=== PATIENT | female | born 1950 | race Caucasian/White ===

== ENCOUNTER 2024-01-11 09:32 | Emergency (ER) | payer MEDICARE, MEDICAID ==
[~2024-01-11] VITALS: Ht 167.6 cm; Wt 98.0 kg
[~2024-01-11 09:32] MED LIST: ACET-2971 PO; CELE-148 PO; DOCU-151 PO; GABA-530 PO; HYDR-3965 PO; LORA10TA7 PO; PANT-47 PO
[2024-01-11 09:36] VITALS: TEMP 97.9
[2024-01-11] MEDS: normal saline 1000ML IV soln IVB ONE (09:50)
[2024-01-11] MEDS: fentaNYL/PF 50MCG/1 ML 2ML syringe IV ONE (09:50)
[2024-01-11] MEDS: ondansetron/PF 4mg/2ml inj IV ONE (09:50)
[2024-01-11 10:24] LABS: ALBUMIN 3.9 G/DL (3.4-5.0); ANION GAP 9 (8-16); BLOOD UREA NITROGEN 13 MG/DL (7-18); BUN/CREATININE RATIO 14.4 (10.0-20.0); CALCIUM 8.7 MG/DL (8.5-10.1); CHLORIDE 107 MMOL/L (99-107); GLUCOSE 109 MG/DL (70-104); SODIUM 142 MMOL/L (135-145); TOTAL CARBON DIOXIDE 26.4 MMOL/L (24-32); eCRCL 54 ML/MIN; eGFR 62 ML/MIN
[2024-01-11 10:28] LABS: BASOPHILS % (AUTO) 0.8 % (0-1); EOSINOPHILS # (AUTO) 0.1 X10'3 (0-0.9); HEMATOCRIT 44.6 % (35.0-45.0); HEMOGLOBIN 14.5 g/dl (12.0-16.0); LYMPHOCYTES # (AUTO) 1.1 X10'3 (1.1-4.8); MEAN CORPUSCULAR HEMOGLOBIN 29.4 PG (27.0-31.0); MEAN CORPUSCULAR HGB CONC 32.5 g/dL (33.0-36.5); MEAN CORPUSCULAR VOLUME 90.6 FL (78-98); MEAN PLATELET VOLUME 8.3 FL (7.4-10.4); MONOCYTES # (AUTO) 0.4 X10'3 (0-0.9); MONOCYTES % (AUTO) 6.5 % (2-12); NEUTROPHILS # (AUTO) 4.3 X10'3 (1.8-7.7); NEUTROPHILS % (AUTO) 72.7 % (42-75); PLATELET COUNT 258 X10'3 (140-440); RED BLOOD COUNT 4.92 X10'6 (4.20-5.60); RED CELL DISTRIBUTION WIDTH 14.6 % (11.5-14.5); WHITE BLOOD COUNT 5.9 X10'3 (4.5-11.0)
[2024-01-11 10:49] LABS: PROTHROMBIN TIME 10.4 SECONDS (9.0-12.0)
[2024-01-11] MEDS ORDERED: CYCL-1 PO (11:45)
[2024-01-11 15:14] VITALS: BP 145/86; PULSE 84; RESP 16; O2SAT 98
== END 2024-01-11 15:15 | disposition home or self-care (01) ==
LOC: ER 09:32
DX: M54.31 Sciatica, right side (principal); M25.551 Pain in right hip; M48.061 Spinal stenosis, lumbar region without neurogenic claudication; G43.909 Migraine, unspecified, not intractable, without status migrainosus; J44.9 Chronic obstructive pulmonary disease, unspecified; E11.9 Type 2 diabetes mellitus without complications; R79.1 Abnormal coagulation profile; Z88.5 Allergy status to narcotic agent; Z79.2 Long term (current) use of antibiotics; Z79.1 Long term (current) use of non-steroidal anti-inflammatories (NSAID); Z79.899 Other long term (current) drug therapy; Z90.49 Acquired absence of other specified parts of digestive tract; Z90.710 Acquired absence of both cervix and uterus; W19.XXXA Unspecified fall, initial encounter; Y93.89 Activity, other specified; Y92.89 Other specified places as the place of occurrence of the external cause; Y99.8 Other external cause status
CPT/HCPCS: 36415; 72131; 72192; 80048; 85025; 85610; 96361; 96374; 96375; 99285; J2405; J3010; J7030; A4615

== ENCOUNTER 2024-05-23 09:32 | Day surgery (SDC) | payer MEDICARE, MEDICAID ==
[2024-05-16 11:36] LABS: ALBUMIN 3.7 G/DL (3.4-5.0); ALBUMIN/GLOBULIN RATIO 0.9 (1.1-1.5); ALKALINE PHOSPHATASE 113 IU/L (46-116); BLOOD UREA NITROGEN 18 MG/DL (7-18); BUN/CREATININE RATIO 19.1 (10.0-20.0); CALCIUM 8.9 MG/DL (8.5-10.1); CHLORIDE 106 MMOL/L (99-107); CREATININE 0.94 MG/DL (0.40-0.90); PRE OP ALT 26 U/L (30-65); PRE OP ANION GAP 7 (8-16); PRE OP AST 12 U/L (10-37); PRE OP BILIRUB, TOTAL 0.2 MG/DL (0.0-1.0); PRE OP GLUCOSE 104 MG/DL (70-104); PRE OP POTASSIUM 3.9 MMOL/L (3.4-5.1); PRE OP SODIUM 142 MMOL/L (135-145); TOTAL CARBON DIOXIDE 28.8 MMOL/L (24-32); TOTAL PROTEIN 7.6 G/DL (6.4-8.2); eGFR 59 ML/MIN
[2024-05-16 11:41] LABS: BASOPHILS % (AUTO) 0.6 % (0-1); EOSINOPHILS # (AUTO) 0.1 X10'3 (0-0.9); EOSINOPHILS % (AUTO) 1.2 % (0-6); LYMPHOCYTES # (AUTO) 1.6 X10'3 (1.1-4.8); LYMPHOCYTES % (AUTO) 23.9 % (21-51); MEAN CORPUSCULAR HEMOGLOBIN 29.8 PG (27.0-31.0); MEAN CORPUSCULAR HGB CONC 33.1 g/dL (33.0-36.5); MEAN CORPUSCULAR VOLUME 89.8 FL (78-98); MEAN PLATELET VOLUME 8.4 FL (7.4-10.4); MONOCYTES # (AUTO) 0.5 X10'3 (0-0.9); MONOCYTES % (AUTO) 7.1 % (2-12); NEUTROPHILS # (AUTO) 4.4 X10'3 (1.8-7.7); NEUTROPHILS % (AUTO) 67.2 % (42-75); PRE OP HEMATOCRIT 41.8 % (35.0-45.0); PRE OP HEMOGLOBIN 13.8 g/dL (12.0-16.0); PRE OP PLATELET COUNT 243 X10'3 (140-440); PRE OP WHITE BLOOD COUNT 6.5 10'3 (4.8-10.8); RED BLOOD COUNT 4.65 X10'6 (4.20-5.60); RED CELL DISTRIBUTION WIDTH 14.1 % (11.5-14.5)
[2024-05-23] VITALS (7 sets, daily range): BP systolic 126–161; BP diastolic 62–93; PULSE 74–93; RESP 11–16; TEMP 97.7–97.9; O2SAT 94–100
[~2024-05-23] VITALS: Ht 157.5 cm; Wt 76.2 kg
[2024-05-23] MEDS: cefazolin 2gm/D5W 100mL 100 ML IV ONE (05:30)
[~2024-05-23 09:32] MED LIST changes: -ACET-2971 PO; -CELE-148 PO; -DOCU-151 PO; -HYDR-3965 PO; -LORA10TA7 PO; +OMEP10CA5 PO; -PANT-47 PO
[2024-05-23] MEDS: ringers solution, lacted 1,000 ML IV SCH (09:57)
[2024-05-23] MEDS: famotidine 20mg tablet PO ONE (09:57)
[2024-05-23] MEDS ORDERED: LIDOcaine 1% (10mg/ml)w/preservative inj. 20ml MDV ONE (10:00)
[2024-05-23] MEDS ORDERED: BUPIVAcaine/PF 2.5mg/ml (0.25%) 10ml vial ONE (10:00)
[2024-05-23] MEDS ORDERED: sevoflurane 250ml liquid IH ONE (10:58)
[2024-05-23] MEDS ORDERED: fentaNYL/PF 50MCG/1 ML 2ML syringe ONE (11:03)
[2024-05-23] MEDS ORDERED: midazolam 1 mg/ML 2ml injection ONE (11:05)
[2024-05-23] MEDS: BUPIVAcaine/PF 2.5mg/ml (0.25%) 10ml vial IJ ONE (11:22)
[2024-05-23] MEDS ORDERED: propofol inj 20 ML IV ONE (11:30)
[2024-05-23] MEDS ORDERED: ondansetron/PF 4mg/2ml inj ONE (11:30)
[2024-05-23] MEDS ORDERED: labetalol 20mg/4ml (5mg/ml) syringe IV PRN (11:55)
[2024-05-23] MEDS ORDERED: meperidine/PF 25mg/ml syringe IV PRN ×3 (11:55)
[2024-05-23] MEDS ORDERED: ondansetron/PF 4mg/2ml inj IV PRN (11:55)
[2024-05-23] MEDS ORDERED: proCHLORperazine 10 MG/2 ml inj IV PRN (11:55)
[2024-05-23] MEDS ORDERED: morphine 4 MG/ML inj SYRINge IV PRN (11:55)
[2024-05-23] MEDS ORDERED: morphine 2 MG/ML inj. syringe IV PRN (11:55)
[2024-05-23] MEDS ORDERED: ringers solution, lacted 1,000 ML IV SCH (11:55)
[2024-05-23] MEDS ORDERED: enalaprilat dihydrate 2.5mg/2ml vial IV PRN (11:55)
[2024-05-23] MEDS: HYDROcodone/acetaminophen 5mg/325mg tablet PO PRN (12:13)
== END 2024-05-23 12:51 | disposition home or self-care (01) ==
LOC: PAS 09:32
PROVIDERS: ATTEND Surgery
DX: D17.24 Benign lipomatous neoplasm of skin and subcutaneous tissue of left leg (principal); K21.9 Gastro-esophageal reflux disease without esophagitis; M19.90 Unspecified osteoarthritis, unspecified site; Z79.899 Other long term (current) drug therapy; Z90.710 Acquired absence of both cervix and uterus; Z98.890 Other specified postprocedural states; Z87.891 Personal history of nicotine dependence; Z96.659 Presence of unspecified artificial knee joint
CPT/HCPCS: 27337; 36415; 80053; 82948; 85025; 93005; A4215; A4618; A7000; J0690; J1100; J2250; J2405; J2704; J3010; J3490; J7030; J7120; Z7506; Z7512; Z7610

== ENCOUNTER 2025-03-26 17:37 | Emergency (ER) | payer MEDICARE, MEDICAID ==
[~2025-03-26] VITALS: Ht 162.6 cm; Wt 80.0 kg
[2025-03-26 17:49] VITALS: TEMP 98.8
--- NOTE | 2025-03-26 18:09 | Physician Documentation ---
History of Present Illness ~ Chief Complaint: Mechanical Fall Stated Complaint: FALL Time Seen by MD: 17:49 OK to notify your PCP?: Yes Primary Medical Doctor: ROB SOLITARIO Source: patient Mode of Arrival: POV Exam Limitations: no limitations HPI This is a 75-year-old female brought in via BLS ambulance had for a fall. The patient was states that is she was at home sitting in the toilet and got up and turned around in a flush the toilet and fell. She was complaining of pain of the right wrist with a small skin tear with the area. She also states she hit the back of the head in his complaining of neck pain. She was in his she was placed in a hard cervical collar by EMS however she removed it because she states it was uncomfortable and she refuses to wear. The patient was also stat es she was complaining of bilateral hip pain. She was not able to get up and ambulate afterwards however she states that she was wheelchair bound and does not ambulate as it is. Tetanus within 5 Years?: Yes Medication Reconciliation Allergies: Coded Allergies: Sulfa (Sulfonamide Antibiotics) (Verified Allergy, Intermediate, SWELLING, 03/26/25) codeine (Verified Allergy, Unknown, HIVES, 03/26/25) Scheduled Gabapentin (Gabapentin), Unknown Dose PO HS, (Reported) Omeprazole (Omeprazole), Unknown Dose PO DAILY, (Reported) Past Medical History Past Medical History: Headache, Migraine, COPD Past Surgical History: abdominal surgery, cholecystectomy, hysterectomy Patient History: (DM Type 2) Diabetes mellitus type 2 FATHER MOTHER CHILD, Name: Gisel (dtr) No Family History of: (CABG) Coronary artery bypass grafting (CAD) Coronary arteriosclerosis (CHF) Congestive heart failure (COPD) Chronic obstructive lung disease (CVA) Cerebrovascular accident (Cancer) Malignant carcinoid tumor (DM Type1) Diabetes mellitus type 1 (TN) Myocardial infarction (PVD) Peripheral vascular disease (TIA) Transient ischemic attack Alzheimer's disease Aortic aneurysm Asthma Cardiac arrest Hypercholesterolemia Rickets Alcohol Use: None Drug Use: none Lives In: Home Physical Exam Vital Signs: Temperature: 98.8, Source: Oral, Heart Rate: 85, Respiratory Rate: 16, BP: 152/89, Pulse Oximetry: 96, Weight: 80.000 Oxygen Flow Rate: 0 Pulse Oximetry Reflects: adequate oxygenation General Appearance: alert, WD/WN, no apparent distress Head: no evidence of injury Head No obvious trauma to inspection of the skull in the face. The patient was points to the midline posterior scalp as area of injury though she was advised pain. There was no palpable contusion, step-off or deformity to the area. Negative raccoon eyes or villa signs. Negative hemotympanum bilaterally. Pupils/EOM/Fundus: PERRLA, EOM intact Neck The patient does have midline point tenderness to the mid cervical spine. No obvious step-off or deformity. The patient has full range of motion of the cervical spine in his moving it freely without any obvious difficulty or deficit Respiratory No accessory muscle use or retractions. Lungs are clear to auscultation in all patel. Cardiovascular No rubs, gallops or murmurs. No peripheral edema, cyanosis or clubbing of the extremities Back No tenderness to palpation of the midline thoracolumbar spine Pelvis: other (No obvious deformity to the hips with the bilateral lower extremities. No external rotation and shortening or internal rotation and lengthening. There is tenderness to palpation of the anterior, lateral and posterior hip joints without obvious crepitus deformity. Passively she has full range of motion of the hip in all movements bilaterally however this does elicit some tenderness.) Extremities To inspection of the right wrist the patient has a small round flap-like skin tear with some superficial surrounding contusions. Mild discomfort to palpation of the distal radius without obvious step-off or deformity. The patient was good range of motion at the radiocarpal joint with flexion, extension, ulnar, radial deviation. No anatomical snuffbox tenderness no tenderness to palpation of the carpals, metacarpals or distal phalanges. Cap refill less than 2 seconds and brisk in the digits of the left hand and left radial pulses 2+. Neurologic: oriented x4, audience development manager II-XII nml as tested, memory intact, oriented to time, oriented to person, oriented to place, oriented to events Motor / Sensory: no motor deficit Cerebellar function exam: normal Progress Results/Orders Reviewed/noted all lab results: Yes Results/Orders Orders - SAMI KEEN Hip,Bi,Cmplt(Ap Pelvis) (03/26/25 18:31) Wrist, Complete (3vw Min) (03/26/25 18:32) Ct Head (03/26/25 18:15) Ct Cervical Spine (03/26/25 18:15) Completed Orders - SAMI KEEN Hip,Bi,Cmplt(Ap Pelvis) (03/26/25 18:31) Wrist, Complete (3vw Min) (03/26/25 18:32) Ct Head (03/26/25 18:15) Ct Cervical Spine (03/26/25 18:15) Vital Signs 03/26/25 03/26/25 17:49 17:54 Temp 98.8 Pulse 85 Resp 16 B/P (MAP) 152/89 Pulse Ox 96 O2 Flow Rate 0 EKG/XRAY/CT/US/VASC/MRI CT : Interpreted By: self Impression CT scan of the head without IV contrast interpreted by me: No obvious calvarial fracture. No obvious intracranial hemorrhage. Soft tissues unremarkable. CT scan cervical spine without IV contrast interpreted by me: No obvious fracture or subluxation. Soft tissues unremarkable. X-ray right wrist three-view interpreted by me: No obvious fracture or malalignment. Soft tissues unremarkable. Positive degenerative changes X-ray bilateral hips with AP pelvis interpreted by me: No obvious fracture or malalignment. soft tissues unremarkable. No dislocation Medical Decision Making Findings Fortunately the CT scan of the head, cervical spine were negative. The x-rays of the right wrist and the bilateral hips and pelvis also negative for fracture. The patient was with a family member who will be taking her home to help care for her. The patient was states you can take Tylenol arthritis when she typically takes for pain. I instructed her to apply cold compresses to the sore areas for 20 minutes every 2 hours for the 1st three days and rest. Follow up with the primary care physician for recheck in the next one or two days and return to the ER for any worsening or concerning symptoms. Additional Comment Mechanical fall. Head injury. Low clinical suspicion for skull fracture or intracranial hemorrhage. Cervical sprain strain. Rule out fracture. Right wrist injury without fracture. Skin tear right wrist. Bilateral hip pain rule out fracture Departure Disposition: HOME / SELF CARE / HOMELESS Impression: Primary Impression: Head injury Additional Impressions: Cervical sprain Contusion of left hip Contusion of right hip Contusion of right wrist Tear of skin of right wrist Condition: Stable Discharge Instructions: Fall Prevention in the Home, Adult, [id number] Additional Instructions: Apply cold compresses to the sore areas for 20 minutes every 2 hours for the 1st few days and rest. Continue with the Tylenol for pain. Follow up with the primary care physician for recheck in the next one or two days. Gently cleansed the skin tear of your wrist with antibacterial soap and water, dry well and covered with a nonstick Band-Aid. Return to the ER for any worsening or con cerning symptoms Referrals: NO PRIMARY CARE PROVIDER (PCP) Signature Scribe Signature: No scribe Attestation: The note accurately reflects work and decisions made by me.Sami CARRASCO 03/26/25 19:26 SAMI KEEN Mar 26, 2025 18:09
--- NOTE | 2025-03-26 18:44 | RADIOLOGY REPORT ---
EXAM: CT CT HEAD; DATE: 03/26/2025 06:15 PM HISTORY: Head injury status post fall COMPARISON: None TECHNIQUE: Axial images were obtained and reformatted in coronal and sagittal planes. All CT scans at this medical facility are performed using dose modulation techniques as appropriate to a performed e xam including the following: Automated exposure control was utilized; adjustment of the MA and/or KV according to patient size; and use of iterative reconstruction technique. CT Dose: CTDI volume is 59 mGy. Dose-length product is 995 mGy*cm FINDINGS: Supratentorial Region: No evidence for large acute territorial ischemia. No intracranial hemorrhage is noted. Confluent white matter hypoattenuating foci are noted bilaterally, which typically reflect chronic microvascular ischemic changes. Posterior Fossa: No acute abnormality. Brainstem: Unremarkable. Sellar/Suprasellar Region: Unremarkable. Ventricles, Cisterns, Sulci: Mildly prominent reflecting volume loss. Orbits: Unremarkable. Paranasal Sinuses: Unremarkable. Mastoid Air Cells: Unremarkable. Vasculature: Unremarkable. Bones/Soft Tissues: No acute abnormality. Other: None. IMPRESSION: 1. No acute intracranial process.
--- NOTE | 2025-03-26 19:04 | RADIOLOGY REPORT ---
Clinical History Fall with bilateral hip pain Comparison None Without Contrast KENDALLLUIS Kay, [id number] TECHNIQUE: AP view of the pelvis. 2 views of bilateral hips FINDINGS: No evidence of acute displaced fracture or dislocation. The joints are unremarkable.No significant shameka int effusion. The soft tissues are unremarkable. IMPRESSION: No evidence of acute osseous abnormality. This report was electronically signed by Suzette Porter MD on 03/26/2025 7:01:57 PM.
--- NOTE | 2025-03-26 19:04 | RADIOLOGY REPORT ---
Clinical History Head injury status post fall Comparison None Technique: All CT scans at this medical facility are performed using dose modulation techniques as appropriate t o a performed exam including the following: Automated exposure control was utilized; adjustment of th e mA and/or kV according to patient size; and use of iterative reconstruction technique. All CT studies are reported to the Dose Index Registry of the [employer]. Without Contrast Radiation Dose: CTDI (mGy): 20.24; DLP (mGy-cm): 448.16 LUIS BRYAN, [id number] FINDINGS: Cervical vertebral body height is maintained. Vertebral alignment is maintained.The craniocervical j unction is within normal limits. No fractures or destructive osseous lesions are identified. The alignment of the facets is maintained . No significant facet joint hypertrophy. Minimum degenerative changes of cervical spines with dorcas nal osteophytosis. Unremarkable appearance of the intervertebral discs and the disc spaces by CT criteria. The spinal ca nal is patent. No significant neuroforaminal stenosis. No prevertebral soft tissue swelling is identified. Soft tissue planes of the neck are unremarkable. Multiple bilateral predominantly subcentimeter cerv ical lymph nodes are detected with no significant cervical lymphadenopathy. The upper portions of the chest including lungs and mediastinum appear unremarkable. IMPRESSION: No evidence of acute cervical spine osseous traumatic injury. This report was electronically signed by Suzette Porter MD on 03/26/2025 7:01:03 PM.
--- NOTE | 2025-03-26 19:06 | RADIOLOGY REPORT ---
Clinical History Right wrist pain status post fall Comparison None Without Contrast KENDALLLUIS Kay, [id number] TECHNIQUE: 3 views of the right wrist. FINDINGS: No evidence of acute displaced fracture or dislocation. The joints are unremarkable.No significant shameka int effusion. The soft tissues are unremarkable. IMPRESSION: No evidence of acute osseous abnormality. This report was electronically signed by Suzette Porter MD on 03/26/2025 7:03:08 PM.
[2025-03-26 19:36] VITALS: BP 115/63; PULSE 71; RESP 16; O2SAT 96
== END 2025-03-26 19:38 | disposition home or self-care (01) ==
LOC: ER 17:37
DX: S61.511A Laceration without foreign body of right wrist, initial encounter (principal); S13.4XXA Sprain of ligaments of cervical spine, initial encounter; S70.01XA Contusion of right hip, initial encounter; S70.02XA Contusion of left hip, initial encounter; S09.90XA Unspecified injury of head, initial encounter; E11.9 Type 2 diabetes mellitus without complications; J44.9 Chronic obstructive pulmonary disease, unspecified; G43.909 Migraine, unspecified, not intractable, without status migrainosus; Z88.2 Allergy status to sulfonamides; Z88.5 Allergy status to narcotic agent; Z88.8 Allergy status to other drugs, medicaments and biological substances; Z90.49 Acquired absence of other specified parts of digestive tract; Z90.710 Acquired absence of both cervix and uterus; W19.XXXA Unspecified fall, initial encounter; Y93.89 Activity, other specified; Y92.009 Unspecified place in unspecified non-institutional (private) residence as the place of occurrence of the external cause; Y99.8 Other external cause status
CPT/HCPCS: 70450; 72125; 73110; 73521; 99284